=== PATIENT | female | born 1970 | race Hispanic/Latino ===

== ENCOUNTER 2016-12-06 09:11 | Outpatient (CLI) | payer BC ==
--- NOTE | 2016-12-07 09:01 | Mammography Report ---
BILATERAL DIGITAL SCREENING MAMMOGRAM with CAD: 12/06/16 09:11:00 CLINICAL: Routine screening. COMPARISON:10/14/15 FINDINGS: The breasts are almost entirely fatty. No mass, architectural distortion or suspicious calcifications. IMPRESSION: No mammographic evidence of malignancy. BI-RADS CATEGORY: 1 - - Negative RECOMMENDATION: Routine mammographic screening in one year. COMMENT: Patient follow-up letters are generated by our [employer] application.
== END 2016-12-06 09:12 | disposition home or self-care (01) ==
LOC: SPVWC 09:11
PROVIDERS: ATTEND Obstetrics & Gynecology
DX: Z12.31 Encounter for screening mammogram for malignant neoplasm of breast (principal)
CPT/HCPCS: 77067; G0202